=== PATIENT | female | born 1985 | race Caucasian/White ===

== ENCOUNTER 2021-11-23 09:52 | Emergency (ER) | payer SELFPAY ==
[2021-11-23 10:59] LABS: Urine Blood Negative (Negative); Urine Glucose Negative (Negative); Urine Protein Negative (Negative); Urine pH 6.5 (5.0-7.0)
--- NOTE | 2021-11-23 12:01 | RAD REPORT ---
EXAM DESCRIPTION: US - Transvaginal OB - 11/23/2021 11:37 am CLINICAL HISTORY: VAGINAL BLEEDING, COMPARISON: No comparisons FINDINGS: Single intrauterine gestation is identified within a normal shaped gestational sac. [place]- rump length measurement corresponds to a 10 week 2 day age. Normal heart tones are identifiable . No gross anatomic abnormality or acute finding within the gestational sac. Patient has a very small sub centimeter subchorionic hemorrhage not regarded as significant at this small size. Internal os a ppears closed. Right ovary is seen with normal blood flow in the ovarian stroma. Left ovary was obscured by bowel. N o adnexal abnormalities. IMPRESSION: Single 10 week 2 day IUP with normal cardiac activity. Very small sub centimeter subchorionic hemorrhage not likely significant. Cervical canal internal os appears closed.
[2021-11-23 12:07] LABS: Absolute Lymphocytes (CBC) 3.1 K/uL (0.7-4.9); Hematocrit 37.8 % (36.0-45.0); Lymphocytes % 23.7 % (15.3-44.8); MPV 8.8 fL (7.6-11.3); RBC Red Blood Cell Count 4.57 M/uL (3.86-4.86)
[2021-11-23 12:27] LABS: Potassium 3.6 mmol/L (3.5-5.1)
--- NOTE | 2021-11-23 12:52 | ER ---
Nurse's Notes [facility] Name: Nancy Kohli Age: 36 yrs Sex: Female : 1985 Arrival Date: 11/23/2021 Time: 09:55 Bed 12 Private MD: Diagnosis: Threatened Presentation: 11/23 10:43 Chief complaint: Patient states: Checking in to rehab and had a positive test ww but has been spotting for the past week. Coronavirus screen: Vaccine status: Patient reports being unvaccinated. Client denies travel out of the [place] in the last 14 days. Ebola Screen: Patient denies travel to an Ebola-affected area in the 21 days before illness onset. Initial Sepsis Screen: Does the patient meet any 2 criteria? No. Patient's initial sepsis screen is negative. Does the patient have a suspected source of infection? No. Patient's initial sepsis screen is negative. Risk Assessment: Do you want to hurt yourself or someone else? Patient reports no desire to harm self or others. Onset of symptoms is unknown. 10:43 Method Of Arrival: Ambulatory ww 10:43 Acuity: CUONG 3 ww Triage Assessment: 10:44 General: Appears in no apparent distress. Behavior is cooperative. Pain: Complains of ww pain in groin. Neuro: Level of Consciousness is awake, alert, obeys commands, Oriented to person, place, time, situation, Speech is normal. Cardiovascular: Patient's skin is warm and dry. Respiratory: Airway is patent Respiratory effort is even, unlabored, Respiratory pattern is regular, symmetrical. GI: Reports cramping. : Reports vaginal bleeding that is. 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 - Social history:: Smoking status: Patient reports the use of cigarette tobacco products. Screenin:09 Abuse screen: Denies threats or abuse. Denies injuries from another. Nutritional iw screening: No deficits noted. Tuberculosis screening: No symptoms or risk factors identified. Fall Risk None identified. Assessment: 12:09 Reassessment: Patient appears in no apparent distress at this time. Patient and/or iw family updated on plan of care and expected duration. Pain level reassessed. Patient is alert, oriented x 3, equal unlabored respirations, skin warm/dry/pink. Vital Signs: 10:43 BP 127 / 79; Pulse 99; Resp 18; Temp 98.6; Pulse Ox 99% ; Weight 68.04 kg; Height 5 ft. ww 3 in. (160.02 cm); Pain 0/10; 10:43 Body Mass Index 26.57 (68.04 kg, 160.02 cm) ww ED Course: 09:55 Patient arrived in ED. ds1 10:44 Triage completed. ww 10:44 Arm band placed on right wrist. ww 10:49 Bala Arreguin NP is PHCP. pm1 10:49 Kendrick Givens MD is Attending Physician. pm1 11:04 Urine --Ancillary (enter results) Sent. ww 11:39 US Transvaginal Ob In Process Unspecified. EDAZ 11:43 Cesilia Kearney, RN is Primary Nurse. iw 11:50 Initial lab(s) drawn, by vt, sent to lab. Inserted saline lock: 20 gauge in left kj1 antecubital area, using aseptic technique. Blood collected. 12:50 Wilmer Alejandro MD is Referral Physician. pm1 Administered Medications: No medications were administered Outcome: 12:51 Discharge ordered by . pm1 12:56 Patient left the ED. iw Signatures: Dispatcher [employer] EDAZ Rima [place] ds1 Cesilia Kearney RN RN Bala Arreguin NP SUPERINTENDENT DRILLING pm1 Natalia Wilhelm kj1 Iman Bullard RN RN
--- NOTE | 2021-11-23 12:52 | EDPHYS ---
Physician Documentation [facility] Name: Nancy Kohli Age: 36 yrs Sex: Female : 1985 Arrival Date: 11/23/2021 Time: 09:55 Bed 12 Private MD: Kendrick Villanueva HPI: 11/23 11:03 This 36 yrs old Female presents to ER via Ambulatory with complaints of Possible pm1 ,vaginal bleeding. 11:03 The patient presents with vaginal bleeding that is spotting. Onset: The pm1 symptoms/episode began/occurred 1 week(s) ago. Modifying factors: The symptoms are alleviated by nothing, the symptoms are aggravated by nothing. Associated signs and symptoms: The patient has no apparent associated signs or symptoms, Pertinent negatives: diarrhea, dyspareunia, dysuria, fever, nausea, vomiting, Abdominal pain. Severity of symptoms: in the emergency department the symptoms are unchanged. The patient is sexually active. The patient's method of control includes nothing. The patient has not experienced similar symptoms in the past. The patient has not recently seen a physician. Patient checking into rehabilitation and tested positive for urine test. Patient reports 1 month ago last possible menstrual cycle. 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 - Social history:: Smoking status: Patient reports the use of cigarette tobacco products. ROS: 11:03 Positive for vaginal bleeding, Negative for urinary symptoms, vaginal discharge. pm1 11:03 Constitutional: Negative for fever, chills, and weight loss, Cardiovascular: Negative for chest pain, palpitations, and edema, Respiratory: Negative for shortness of breath, cough, wheezing, and pleuritic chest pain, Abdomen/GI: Negative for abdominal pain, nausea, vomiting, diarrhea, and constipation, Back: Negative for injury and pain, MS/Extremity: Negative for injury and deformity, Skin: Negative for injury, rash, and discoloration, Neuro: Negative for headache, weakness, numbness, tingling, and seizure. 11:03 All other systems are negative. Exam: 11:03 Constitutional: This is a well developed, well nourished patient who is awake, alert, pm1 and in no acute distress. Head/Face: Normocephalic, atraumatic. 11:03 Back: No spinal tenderness. No costovertebral tenderness. Full range of motion. Skin: Warm, dry with normal turgor. Normal color with no rashes, no lesions, and no evidence of cellulitis. MS/ Extremity: Pulses equal, no cyanosis. Neurovascular intact. Full, normal range of motion. 11:03 Cardiovascular: Exam negative for acute changes, Rate: normal, Rhythm: regular, Pulses: no pulse deficits are appreciated. 11:03 Respiratory: Exam negative for acute changes, respiratory distress, shortness of breath. 11:03 Abdomen/GI: Inspection: abdomen appears normal, Palpation: abdomen is soft and non-tender, in all quadrants. 11:03 Neuro: Exam negative for acute changes, Orientation: is normal, Mentation: is normal, Motor: is normal, moves all fours. Vital Signs: 10:43 BP 127 / 79; Pulse 99; Resp 18; Temp 98.6; Pulse Ox 99% ; Weight 68.04 kg; Height 5 ft. ww 3 in. (160.02 cm); Pain 0/10; 10:43 Body Mass Index 26.57 (68.04 kg, 160.02 cm) ww MDM: 11:02 Patient medically screened. pm1 12:35 Data reviewed: vital signs. Data interpreted: Pulse oximetry: on room air is 99 %. pm1 Interpretation: normal. 12:50 Counseling: I had a detailed discussion with the patient and/or guardian regarding: the pm1 historical points, exam findings, and any diagnostic results supporting the discharge/admit diagnosis, lab results, radiology results, the need for outpatient follow up, an OB/Gyne specialist, to return to the emergency department if symptoms worsen or persist or if there are any questions or concerns that arise at home. 11/23 10:51 Order name: Abo/rh Typing; Complete Time: 12:29 pm1 11/23 10:51 Order name: Basic Metabolic Panel; Complete Time: 12:29 pm1 11/23 10:51 Order name: CBC with Diff; Complete Time: 12:29 pm1 11/23 10:51 Order name: Quantitative Hcg; Complete Time: 12:29 pm1 11/23 11:00 Order name: Urine Dipstick-Ancillary; Complete Time: 11:43 EDMS 11/23 11:00 Order name: Urine --Ancillary (enter results); Complete Time: 11:43 bd 11/23 10:51 Order name: IV Saline Lock; Complete Time: 12:09 pm1 11/23 10:51 Order name: Labs collected and sent; Complete Time: 12:09 pm1 11/23 10:51 Order name: NPO; Complete Time: 12:09 pm1 11/23 10:51 Order name: Urine Dipstick-Ancillary (obtain specimen); Complete Time: 11:04 pm1 11/23 10:51 Order name: Urine Test (obtain specimen); Complete Time: 11:04 pm1 11/23 10:51 Order name: US Transvaginal Ob; Complete Time: 12:03 pm1 Administered Medications: No medications were administered Disposition Summary: 11/23/21 12:51 Discharge Ordered Location: Home pm1 Problem: new pm1 Symptoms: have improved pm1 Condition: Stable pm1 Diagnosis - Threatened pm1 Followup: pm1 - With: Emergency Department - When: As needed - Reason: Worsening of condition Followup: pm1 - With: Wilmer Alejandro MD - When: 2 - 3 days - Reason: Recheck today's complaints, Continuance of care, Re-evaluation by your physician Discharge Instructions: - Discharge Summary Sheet pm1 - Threatened Miscarriage pm1 - Activity Restriction During pm1 Forms: - Medication Reconciliation Form pm1 - Thank You Letter pm1 - Antibiotic Education pm1 - Prescription Opioid Use pm1 Signatures: Dispatcher [employer] EDMS Bala Arreguin NP ELECTRONICS MANUFACTURER pm1 Iman Bullard, RN RN ww
[2021-11-23 13:06] VITALS: BP 127/79; TEMP 98.6; O2SAT 99
== END 2021-11-23 12:56 | disposition home or self-care (01) ==
LOC: ER 09:52
DX: O20.0 Threatened abortion (principal); O99.341 Other mental disorders complicating pregnancy, first trimester; O99.331 Smoking (tobacco) complicating pregnancy, first trimester; F17.210 Nicotine dependence, cigarettes, uncomplicated; Z3A.10 10 weeks gestation of pregnancy; Z88.2 Allergy status to sulfonamides
CPT/HCPCS: 36415; 76817; 80048; 81003; 81025; 84702; 85025; 86900; 86901; 99283

== ENCOUNTER 2021-12-13 20:34 | Emergency (ER) | payer OTHER ==
[2021-12-13 22:32] LABS: Urine Blood Negative (Negative); Urine Glucose Negative (Negative); Urine Protein Negative (Negative)
[2021-12-13 22:53] LABS: Absolute Lymphocytes (CBC) 2.9 K/uL (0.7-4.9); RBC Red Blood Cell Count 4.54 M/uL (3.86-4.86)
[2021-12-13 23:21] LABS: Potassium 3.9 mmol/L (3.5-5.1)
--- NOTE | 2021-12-14 00:33 | EDPHYS ---
Physician Documentation [facility] Name: Nancy Kohli Age: 36 yrs Sex: Female : 1985 Arrival Date: 12/13/2021 Time: 20:36 Bed 7 Private MD: ED Physician Shaun Somers HPI: 12/13 21:12 This 36 yrs old Female presents to ER via Ambulatory with complaints of Vaginal Pain, + aj3 preg > 12 weeks. 21:12 The patient presents with pelvic pain. Onset: The symptoms/episode began/occurred aj3 acutely, 1 day(s) ago. Associated signs and symptoms: Pertinent positives: constipation, urinary frequency, Pertinent negatives: diarrhea, dysuria, fever, hematuria, vaginal bleeding, vaginal discharge, vomiting. Patient is presenting with lower back pain and lower abdominal/pelvic pain that began today. Her last was 15 years ago so she was concerned and wanted to be evaluated. She does feel movement and she denies any vaginal discharge or bleeding.. 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 - Social history:: Smoking status: Patient reports the use of cigarette tobacco products, smokes one-half pack cigarettes per day, Patient/guardian denies using alcohol. ROS: 21:12 Constitutional: Negative for fever, chills, and weight loss, Cardiovascular: Negative aj3 for chest pain, palpitations, and edema, Respiratory: Negative for shortness of breath, cough, wheezing, and pleuritic chest pain, MS/Extremity: Negative for injury and deformity, Skin: Negative for injury, rash, and discoloration, Neuro: Negative for syncope, headache, weakness, numbness, tingling, and seizure. 21:12 Abdomen/GI: Positive for abdominal pain, constipation, abdominal cramps, Negative for nausea, vomiting, and diarrhea, black/tarry stool, rectal bleeding. 21:12 Back: Positive for pain at rest, of the lumbar area, left low back and right low back. 21:12 : Positive for pelvic pain, urinary frequency, Negative for hematuria, flank pain, difficulty urinating, vaginal bleeding, vaginal discharge, vaginal itching. Exam: 21:16 Constitutional: This is a well developed, well nourished patient who is awake, alert, aj3 and in no acute distress. Cardiovascular: Regular rate and rhythm with a normal S1 and S2. No gallops, murmurs, or rubs. Normal PMI, no JVD. No pulse deficits. Respiratory: Lungs have equal breath sounds bilaterally, clear to auscultation and percussion. No rales, rhonchi or wheezes noted. No increased work of breathing, no retractions or nasal flaring. 21:16 Abdomen/GI: Soft, non-tender, with normal bowel sounds. No distension or tympany. No guarding or rebound. No evidence of tenderness throughout. Skin: Warm, dry with normal turgor. Normal color with no rashes, no lesions, and no evidence of cellulitis. MS/ Extremity: Pulses equal, no cyanosis. Neurovascular intact. Full, normal range of motion. Neuro: Awake and alert, GCS 15, oriented to person, place, time, and situation. Cranial nerves II-XII grossly intact. Motor strength 5/5 in all extremities. Sensory grossly intact. Cerebellar exam normal. Normal gait. 21:16 Back: pain, that is very mild, diffuse lower back. Vital Signs: 20:50 BP 147 / 97; Pulse 107; Resp 18; Temp 98.1(TE); Pulse Ox 100% ; Weight 68.04 kg; Height ld1 5 ft. 3 in. (160.02 cm); Pain 0/10; 22:41 BP 118 / 79; Pulse 97; Resp 18; Pulse Ox 100% ; tw5 23:39 BP 118 / 75; Pulse 92; Resp 18 S; Pulse Ox 100% on R/A; as6 12/14 00:08 BP 122 / 81; Pulse 95; Resp 18; Pulse Ox 100% on R/A; tw5 00:35 BP 125 / 88; Pulse 88; Resp 18 S; Pulse Ox 99% on R/A; as6 12/13 20:50 Body Mass Index 26.57 (68.04 kg, 160.02 cm) ld1 MDM: 12/13 22:17 Patient medically screened. aj3 12/14 00:33 Data reviewed: vital signs, nurses notes, lab test result(s). Counseling: I had a aj3 detailed discussion with the patient and/or guardian regarding: the historical points, exam findings, and any diagnostic results supporting the discharge/admit diagnosis, lab results, radiology results, the need for outpatient follow up. ED course: ED work-up is reassuring. Ultrasound reported normal heart tones at rate 150. No acute events while in the ED. Discussed results, OB follow-up and ER return precautions which patient verbalized understanding. 12/13 21:19 Order name: Abo/rh Typing; Complete Time: 23:45 3 12/13 21:19 Order name: Basic Metabolic Panel; Complete Time: 23:45 3 12/13 21:19 Order name: CBC with Diff; Complete Time: 22:59 3 12/13 21:19 Order name: Quantitative Hcg; Complete Time: 23:45 3 12/13 22:32 Order name: Urine Dipstick-Ancillary; Complete Time: 22:38 EDMS 12/13 22:34 Order name: Urine --Ancillary (enter results); Complete Time: 23:45 [facility] 12/13 21:19 Order name: Labs collected and sent; Complete Time: 22:40 3 12/13 21:19 Order name: Urine Dipstick-Ancillary (obtain specimen); Complete Time: 22:31 3 12/13 22:39 Order name: US OB Limited aj3 Administered Medications: No medications were administered Disposition: 02:08 Co-signature as Attending Physician, Shaun Somers MD. [email or web address] Disposition Summary: 12/14/21 00:32 Discharge Ordered Location: Home aj3 Problem: new aj3 Symptoms: have improved aj3 Condition: Stable aj3 Diagnosis - related conditions, unspecified, second trimester aj3 - Lower abdominal pain, unspecified aj3 Followup: aj3 - With: Private Physician - When: 1 - 2 days - Reason: Re-evaluation by your physician Discharge Instructions: - Discharge Summary Sheet aj3 - Abdominal Pain During aj3 Forms: - Medication Reconciliation Form aj3 - Thank You Letter aj3 - Antibiotic Education aj3 - Prescription Opioid Use aj3 Signatures: Dispatcher [employer] Shaun Kraft MD MD 7 Nancy Nicolas RN RN ld1 Aida Wiggins NP OPERATIONAL TEST MECHANIC aj3
--- NOTE | 2021-12-14 00:33 | ER ---
Nurse's Notes [facility] Name: Nancy Kohli Age: 36 yrs Sex: Female : 1985 Arrival Date: 12/13/2021 Time: 20:36 Bed 7 Private MD: Diagnosis: related conditions, unspecified, second trimester;Lower abdominal pain, unspecified Presentation: 12/13 20:48 Chief complaint: Patient states: All day I have been having lower back pains and lower ld1 abdominal pain. Reports 17 weeks . Coronavirus screen: At this time, the client does not indicate any symptoms associated with coronavirus-19. Ebola Screen: No symptoms or risks identified at this time. 20:48 Method Of Arrival: Ambulatory ld1 20:50 Initial Sepsis Screen: Does the patient meet any 2 criteria? No. Patient's initial ld1 sepsis screen is negative. Does the patient have a suspected source of infection? No. Patient's initial sepsis screen is negative. Risk Assessment: Do you want to hurt yourself or someone else? Patient reports no desire to harm self or others. Onset of symptoms was December 13, 2021. 20:50 Acuity: CUONG 3 ld1 Triage Assessment: 20:50 General: Appears in no apparent distress. comfortable, Behavior is calm, cooperative, ld1 appropriate for age. Pain: Complains of pain in back and abdomen Pain does not radiate. Pain currently is 6 out of 10 on a pain scale. EENT: No signs and/or symptoms were reported regarding the EENT system. Neuro: Level of Consciousness is awake, alert, obeys commands, Oriented to person, place, time, situation. Cardiovascular: Capillary refill < 3 seconds Patient's skin is warm and dry. Rhythm is sinus rhythm. Respiratory: Airway is patent Respiratory effort is even, unlabored. GI: Abdomen is round non-distended, Reports lower abdominal pain. 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 - Social history:: Smoking status: Patient reports the use of cigarette tobacco products, smokes one-half pack cigarettes per day, Patient/guardian denies using alcohol. Screenin:41 Abuse screen: Denies threats or abuse. Denies injuries from another. Nutritional tw5 screening: No deficits noted. Tuberculosis screening: No symptoms or risk factors identified. Fall Risk None identified. Assessment: 22:41 General: Reports "I have been having lower back pain and my stomach has been hurting. I tw5 know that when you are you pee more, but I feel the need to go to the bathroom all the time and nothing comes out.". Pain: Complains of pain in low back area Pain currently is 3 out of 10 on a pain scale. Cardiovascular: No deficits noted. Respiratory: No deficits noted. GI: Abdomen is round. : Urine is cloudy, Reports urinary frequency. 12/14 00:08 Reassessment: Patient appears in no apparent distress at this time. No changes from tw5 previously documented assessment. Vital Signs: 12/13 20:50 BP 147 / 97; Pulse 107; Resp 18; Temp 98.1(TE); Pulse Ox 100% ; Weight 68.04 kg; Height ld1 5 ft. 3 in. (160.02 cm); Pain 0/10; 22:41 BP 118 / 79; Pulse 97; Resp 18; Pulse Ox 100% ; tw5 23:39 BP 118 / 75; Pulse 92; Resp 18 S; Pulse Ox 100% on R/A; as6 12/14 00:08 BP 122 / 81; Pulse 95; Resp 18; Pulse Ox 100% on R/A; tw5 00:35 BP 125 / 88; Pulse 88; Resp 18 S; Pulse Ox 99% on R/A; as6 12/13 20:50 Body Mass Index 26.57 (68.04 kg, 160.02 cm) ld1 ED Course: 12/13 20:36 Patient arrived in ED. bp1 20:50 Arm band placed on right wrist. ld1 20:51 Triage completed. ld1 21:01 Aida Wiggins NP is PHCP. aj3 21:01 Shaun Somers MD is Attending Physician. aj3 22:27 Bridget Bullard is Primary Nurse. tw5 22:40 Abo/rh Typing Sent. tw5 22:40 Basic Metabolic Panel Sent. tw5 22:41 Awaiting lab results. tw5 22:41 Patient has correct armband on for positive identification. Bed in low position. Call tw5 light in reach. Side rails up X 1. Pulse ox on. NIBP on. Door closed. Moved to private room. 22:41 Quantitative Hcg Sent. tw5 22:41 CBC with Diff Sent. tw5 22:41 Missed attempt(s): 20 gauge in left antecubital area. Bleeding controlled, band aid tw5 applied, catheter tip intact. 22:41 Initial lab(s) drawn, by me, sent to lab. Missed attempt(s): 22 gauge in left forearm. tw5 Bleeding controlled, band aid applied, catheter tip intact. 22:52 Quantitative Hcg Sent. tw5 22:52 Abo/rh Typing Sent. tw5 22:52 Basic Metabolic Panel Sent. tw5 22:52 CBC with Diff Sent. tw5 23:59 US OB Limited In Process Unspecified. EDMS 12/14 00:08 No provider procedures requiring assistance completed. tw5 00:36 Patient did not have IV access during this emergency room visit. as6 Administered Medications: No medications were administered Medication: 12/13 22:41 VIS not applicable for this client. tw5 Outcome: 06 00:32 Discharge ordered by . aj3 00:36 Discharged to home ambulatory, with significant other. as6 00:36 Condition: stable 00:36 Discharge instructions given to patient, Instructed on discharge instructions, follow up and referral plans. Demonstrated understanding of instructions, follow-up care. 00:36 Patient left the ED. as6 Signatures: Dispatcher [employer] EDMI Deloris Ko [facility] Nancy Nicolas, TO RN ld1 Bridget Bullard tw5 Ricky Olvera RN RN as6 Aida Wiggins, BUDGET CONSULTANT BUDGET CONSULTANT aj3
[2021-12-14 01:13] VITALS: TEMP 98.1
[2021-12-14 01:19] VITALS: BP 125/88; O2SAT 99
--- NOTE | 2021-12-14 12:40 | RAD REPORT ---
EXAM DESCRIPTION: US - OB Limited - 12/14/2021 1:02 am OB Limited CLINICAL HISTORY: 36 years Female, ABD CRAMPING, TECHNIQUE: Real-time transabdominal sonographic imaging of the pelvis was performed. COMPARISON: None. FINDINGS: Number of intrauterine gestational sacs identified: 1 Gestational sac (size/shape): Not measured. Ovoid and regular. [place]-rump length: 6.69 cm. heart rate: 157 Beats per minute. Yolk sac: Not visualized. Ultrasound age is 12 weeks 6 days , and ultrasound CARY is 06/21/2022. LMP age is 12 weeks 4 days , and LMP CARY is 06/23/2022. Subchorionic hemorrhage: None. Amnionic fluid: Qualitatively normal. Uterus: No focal myoma. Adnexa: Normal appearing right ovary with physiologic follicles, right ovary measures 2.9 x 1.5 x 1.7 cm. Nonvisualization of left ovary in part secondary to overlying bowel gas. No gross adnexal masses . Cul-de-sac: No free fluid. IMPRESSION: 1. Single live intrauterine with gestational age of 12 weeks 6 days with CARY of 06/21/2022. Electronically signed by: Wayne Burnette MD 12/14/2021 12:47 AM CDT Due to temporary technical issues with the PACS/Fluency reporting system, reports are being signed by the in house radiologists without review as a courtesy to insure prompt reporting. The interpreting radiologist is fully responsible for the content of the report.
== END 2021-12-14 00:36 | disposition home or self-care (01) ==
LOC: ER 20:34
DX: O26.891 Other specified pregnancy related conditions, first trimester (principal); O99.341 Other mental disorders complicating pregnancy, first trimester; F32.A Depression, unspecified; O99.331 Smoking (tobacco) complicating pregnancy, first trimester; F17.210 Nicotine dependence, cigarettes, uncomplicated; Z3A.12 12 weeks gestation of pregnancy; Z88.1 Allergy status to other antibiotic agents; Z88.2 Allergy status to sulfonamides
CPT/HCPCS: 36415; 76815; 80048; 81003; 81025; 84702; 85025; 86900; 86901; 99284

== ENCOUNTER 2023-10-28 14:34 | Emergency (ER) | payer OTHER ==
[2023-10-28 16:11] LABS: Absolute Basophils 0.1 K/uL (0-0.5); Absolute Eosinophils 0.4 K/uL (0-0.5); Absolute Lymphocytes (CBC) 2.7 K/uL (0.7-4.9); Absolute Monocytes 0.6 K/uL (0.1-1.3); Absolute Neutrophil 4.5 K/uL (1.8-8.0); Basophils % 0.7 % (0-1.3); Eosinophils % 5.1 % (0-4.4); Hematocrit 43.5 % (36.0-45.0); Hemoglobin 14.4 g/dL (12.0-15.0); Lymphocytes % 32.8 % (15.3-44.8); MCH 26.9 pg (27.0-35.0); MCV 81.5 fL (80-100); MPV 9.1 fL (7.6-11.3); Monocytes % 7.1 % (3.3-12.3); Neutrophils % 54.3 % (41.7-73.7); Nucleated Red Blood Cells % 0.1 % (0-0); Platelets 280 thou/uL (152-406); RBC Red Blood Cell Count 5.34 M/uL (3.86-4.86); Red Cell Distribution Width 14.7 % (12.1-15.2)
[2023-10-28 16:13] LABS: Anion Gap 8.8 mEq/L (5.0-15.0)
[2023-10-28 16:26] LABS: Potassium 3.8 mEq/L (3.5-5.1)
--- NOTE | 2023-10-28 18:01 | RAD REPORT ---
EXAM DESCRIPTION: US - Transvaginal Study Probe - 10/28/2023 4:51 pm CLINICAL HISTORY: Abd pain;Vaginal bleeding COMPARISON: No comparisons TECHNIQUE: Sonographic grayscale and color flow images of the pelvis were obtained. FINDINGS: The uterus is normal in size. The uterus measures 7.2 cm in length. Diffuse heterogeneity of the myometrium, with bulky appearance at the fundus. The endometrial stripe measures 5 mm, normal. Both ovaries are normal in size, and overall morphology. The right over 3.3 x 1.3 x 1.6 cm. The left ovary measures 2.6 x 1.2 x 1.2 cm. Small hypoechoic lesion in the left ovary measuring 1.2 cm, with p eripheral hyperechogenicity, may represent a recently ruptured cyst or hemorrhagic follicle. No adnex al masses. Normal Doppler blood flow was demonstrated to both ovaries. Trace free fluid in the cul-de-sac. IMPRESSION: Bulky uterine fundus and diffuse heterogeneity of the myometrium. Findings may relate to poorly defined fibroids versus adenomyosis. Left ovarian 1.2 cm hypoechoic lesion, may represent a recently ruptured cyst or hemorrhagic follicle . Trace free fluid in the cul-de-sac, likely physiologic.
[2023-10-28] MEDS ORDERED: KETOROLAC 30 MG/ML INJ ONE (18:18)
[2023-10-28 19:31] LABS: Urine Bacteria None Seen /HPF (<20); Urine Culture Reflex Order REFLEXED; Urine Mucus 2+ /HPF (None Seen); Urine RBC >50 /HPF (None Seen)
[2023-10-28 19:32] LABS: Specific Gravity > 1.030 (1.005-1.030); Urine Bilirubin NEGATIVE (Negative); Urine Blood 3+ (OVER) (Negative); Urine Clarity Extremely Turbid (Clear); Urine Color Light-Orange (Yellow); Urine Glucose NEGATIVE (Negative); Urine Ketones NEGATIVE (Negative); Urine Microscopic Reflex YN NO UMIC; Urine Nitrite NEGATIVE (Negative); Urine Protein 1+ (Negative); Urine Urobilinogen Normal (Normal); Urine pH 5.5 (5.0-7.0)
[2023-10-28 19:33] LABS: Specific Gravity > 1.030 (1.005-1.030)
--- NOTE | 2023-10-28 19:39 | ER ---
Nurse's Notes [facility] Name: Nancy Kohli Age: 38 yrs Sex: Female : 1985 Arrival Date: 10/28/2023 Time: 14:34 Bed 5 Private MD: Diagnosis: Other ovarian cysts;Leiomyoma of uterus, unspecified;Abnormal uterine and vaginal bleeding, unspecified Presentation: 10/27 15:23 Chief complaint: Patient states: "[place] a pop" in lower abdomen last night while having ph sexual intercourse, reports burning pain after popping sensation, states, " I looked down there this morning and it looked like something was pardeep sticking out down there, like it was swollen.". Coronavirus screen: Vaccine status: Patient reports being unvaccinated. Ebola Screen: No symptoms or risks identified at this time. Initial Sepsis Screen: Does the patient meet any 2 criteria? No. Patient's initial sepsis screen is negative. Does the patient have a suspected source of infection? No. Patient's initial sepsis screen is negative. Risk Assessment: Do you want to hurt yourself or someone else? Patient reports no desire to harm self or others. Onset of symptoms was October 28, 2023. 15:23 Method Of Arrival: Ambulatory ph 15:23 Acuity: CUONG 3 ph Triage Assessment: 15:25 General: Appears in no apparent distress. Behavior is cooperative, anxious. Pain: ph Complains of pain in pelvis. : Reports burning with urination, vaginal bleeding that is spotty. RN CAMP: 15:26 3, LMP N/A - Irregular menses, Not ph Historical: - Allergies: 15:25 Bactrim; ph 15:25 Sulfa (Sulfonamide Antibiotics); ph - Home Meds: 15:25 Seroquel Oral [Active]; ph - PMHx: 15:25 depressive disorder; ph - PSHx: 15:27 tubal ligation; section; ph - Immunization history:: Adult Immunizations unknown. - Infectious Disease History:: Denies. - Social history:: Smoking status: unknown. Screenin:26 [facility] ED Fall Risk Assessment (Adult) History of falling in the last 3 months, ph including since admission No falls in past 3 months (0 pts) Confusion or Disorientation No (0 pts) Intoxicated or Sedated No (0 pts) Impaired Gait No (0 pts) Mobility Assist Device Used No (0 pt) Altered Elimination No (0 pt) Score/Fall Risk Level 0 - 2 = Low Risk Oriented to surroundings, Maintained a safe environment, Hourly rounding (assess needs \\T\\ fall precautionary measures) done. Abuse screen: Denies threats or abuse. Denies injuries from another. Nutritional screening: No deficits noted. Tuberculosis screening: No symptoms or risk factors identified. Assessment: 15:30 General: SEE TRIAGE NOTE. bp 17:00 Reassessment: Patient appears in no apparent distress at this time. Patient is alert, bp oriented x 3, equal unlabored respirations, skin warm/dry/pink. : Reports vaginal bleeding that is light flow. 18:35 Pain: Complains of pain in pelvis. Neuro: Level of Consciousness is awake, alert, obeys ph commands, Oriented to person, place, time, situation. Cardiovascular: Capillary refill is > 3 seconds in bilateral fingers Patient's skin is warm and dry. Respiratory: Airway is patent Respiratory effort is even, unlabored. 19:54 Reassessment: Patient appears in no apparent distress at this time. Patient and/or bm8 family updated on plan of care and expected duration. Pain level reassessed. Patient is alert, oriented x 3, equal unlabored respirations, skin warm/dry/pink. Patient states feeling better. Patient states symptoms have improved. Vital Signs: 15:23 BP 141 / 100; Pulse 90; Resp 18; Temp 98.2; Pulse Ox 100% on R/A; Weight 68.04 kg; ph Height 5 ft. 3 in. ; 17:05 BP 123 / 87; Pulse 81; Resp 16; Pulse Ox 100% ; bp 18:36 BP 118 / 78; Pulse 78; Resp 18; Pulse Ox 98% on R/A; ph 19:54 BP 119 / 96; Pulse 92; Resp 17; Temp 98.2; Pulse Ox 99% ; Pain 4/10; bm8 15:23 Body Mass Index 26.57 (68.04 kg, 160.02 cm) ph 19:54 Pain Scale: Adult bm8 Piotr Coma Score: 19:54 Eye Response: spontaneous(4). Motor Response: obeys commands(6). Verbal Response: bm8 oriented(5). Total: 15. ED Course: 14:39 Patient arrived in ED. ra3 14:44 Mulu Rodriguez FNP is PHCP. jh7 14:44 Misael Vail MD is Attending Physician. jh7 15:13 Mika Viveros, ROGELIO is Primary Nurse. bp 15:25 Triage completed. ph 15:26 Arm band placed on Patient placed in an exam room, on a stretcher. ph 15:26 Patient has correct armband on for positive identification. Placed in gown. Bed in low ph position. Call light in reach. Side rails up X 1. Pulse ox on. NIBP on. Door closed. Noise minimized. Warm blanket given. 15:39 No provider procedures requiring assistance completed. Initial lab(s) drawn, by ri, ph sent to lab. Inserted saline lock: 22 gauge in right antecubital area, using aseptic technique. Blood collected. 15:40 Basic Metabolic Panel Sent. ph 15:40 CBC with Diff Sent. ph 16:52 Transvaginal Study Probe In Process Unspecified. EDWA 18:01 PHCP role handed off by Mulu Rodriguez FNP kb 18:01 Jocelyn Wilhelm FNP-C is PHCP. kb 19:08 Report received from rogelio nice. bm8 19:13 Test, Urine Sent. tm6 19:13 Urinalysis w/ reflexes Sent. tm6 19:17 Awaiting lab results. bm8 19:54 Provided Education on: POST ER CARE and need for follow up with obgyn. bm8 19:54 IV discontinued, intact, bleeding controlled, No redness/swelling at site. Pressure bm8 dressing applied. Administered Medications: 18:35 Drug: Ketorolac IVP 15 mg IVP once Route: IVP; Site: right antecubital; ph 19:55 Follow up: Response: No adverse reaction bm8 Medication: 15:40 VIS not applicable for this client. ph Outcome: 19:39 Discharge ordered by . kb 19:54 Discharged to home ambulatory, bm8 19:54 Condition: stable 19:54 Discharge instructions given to patient, Instructed on discharge instructions, follow up and referral plans. medication usage, safety practices, Demonstrated understanding of instructions, follow-up care, medications, 19:56 Patient left the ED. bm8 Signatures: Dispatcher [employer] EDWA Jocelyn Wilhelm FNP-C FNP-Verona Thomas, RN RN ph Mika Viveros, RN RN bp Mulu Rodriguez, SHIPYARD PAINTER APPRENTICE SHIPYARD PAINTER APPRENTICE 7 Earnest Garner RN RN 6 Rita Bill [facility] Doyle Quintero RN RN bm8 Corrections: (The following items were deleted from the chart) 18:36 17:00 : Reports vaginal bleeding that is bp ph
--- NOTE | 2023-10-28 19:39 | EDPHYS ---
Physician Documentation [facility] Name: Nancy Kohli Age: 38 yrs Sex: Female : 1985 Arrival Date: 10/28/2023 Time: 14:34 Bed 5 Private MD: ED Physician Misael Vail HPI: 10/27 15:23 This 38 yrs old Female presents to ER via Ambulatory with complaints of Vaginal jh7 Bleeding, Vaginal Pain - burning sensation. 15:23 The patient presents with pelvic pain, with associated dyspareunia, vaginal bleeding jh7 that is spotting. Onset: The symptoms/episode began/occurred last night. 38-year-old female with no significant past medical history presents to the ER for vaginal pain. She reports that she was having sexual intercourse last night and that she suddenly felt a pop in her lower abdomen. Reports vaginal burning, dysuria, and feeling like something was protruding from her vagina afterwards. Denies fever, nausea, vomiting, or changes in bowels.. COGNOS ARCHITECT: 15:26 3, LMP N/A - Irregular menses, Not ph Historical: - Allergies: 15:25 Bactrim; ph 15:25 Sulfa (Sulfonamide Antibiotics); ph - Home Meds: 15:25 Seroquel Oral [Active]; ph - PMHx: 15:25 depressive disorder; ph - PSHx: 15:27 tubal ligation; section; ph - Immunization history:: Adult Immunizations unknown. - Infectious Disease History:: Denies. - Social history:: Smoking status: unknown. ROS: 15:23 Constitutional: Negative for fever, chills, and weight loss, Eyes: Negative for injury, jh7 pain, redness, and discharge, Neck: Negative for injury, pain, and swelling, Cardiovascular: Negative for chest pain, palpitations, and edema, Respiratory: Negative for shortness of breath, cough, wheezing, and pleuritic chest pain, Abdomen/GI: Negative for abdominal pain, nausea, vomiting, diarrhea, and constipation, MS/Extremity: Negative for injury and deformity, Skin: Negative for injury, rash, and discoloration, Neuro: Negative for headache, weakness, numbness, tingling, and seizure, 15:23 : Positive for pelvic pain, burning with urination, vaginal bleeding, Negative for flank pain, 15:23 All other systems are negative, Exam: 15:23 Constitutional: This is a well developed, well nourished patient who is awake, alert, jh7 and in no acute distress. Head/Face: Normocephalic, atraumatic. Neck: Trachea midline, no thyromegaly or masses palpated, and no cervical lymphadenopathy. Supple, full range of motion without nuchal rigidity, or vertebral point tenderness. No Meningismus. Cardiovascular: Regular rate and rhythm with a normal S1 and S2. No gallops, murmurs, or rubs. Normal PMI, no JVD. No pulse deficits. Respiratory: Lungs have equal breath sounds bilaterally, clear to auscultation and percussion. No rales, rhonchi or wheezes noted. No increased work of breathing, no retractions or nasal flaring. Abdomen/GI: Soft, non-tender, with normal bowel sounds. No distension or tympany. No guarding or rebound. No evidence of tenderness throughout. Back: No spinal tenderness. No costovertebral tenderness. Full range of motion. Skin: Warm, dry with normal turgor. Normal color with no rashes, no lesions, and no evidence of cellulitis. MS/ Extremity: Pulses equal, no cyanosis. Neurovascular intact. Full, normal range of motion. Neuro: Awake and alert, GCS 15, oriented to person, place, time, and situation. Motor strength 5/5 in all extremities. Sensory grossly intact. Normal gait. Vital Signs: 15:23 BP 141 / 100; Pulse 90; Resp 18; Temp 98.2; Pulse Ox 100% on R/A; Weight 68.04 kg; ph Height 5 ft. 3 in. ; 17:05 BP 123 / 87; Pulse 81; Resp 16; Pulse Ox 100% ; bp 18:36 BP 118 / 78; Pulse 78; Resp 18; Pulse Ox 98% on R/A; ph 19:54 BP 119 / 96; Pulse 92; Resp 17; Temp 98.2; Pulse Ox 99% ; Pain 4/10; bm8 15:23 Body Mass Index 26.57 (68.04 kg, 160.02 cm) ph 19:54 Pain Scale: Adult bm8 Schlater Coma Score: 19:54 Eye Response: spontaneous(4). Motor Response: obeys commands(6). Verbal Response: bm8 oriented(5). Total: 15. MDM: 14:44 Patient medically screened. [facility] 19:39 Differential diagnosis: uti, fibroids, ovarian cyst. Data reviewed: vital signs, nurses kb notes. Counseling: I had a detailed discussion with the patient and/or guardian regarding the historical points, exam findings, and any diagnostic results supporting the discharge/admit diagnosis, lab results, radiology results, the need for outpatient follow up, an OB/Gyne specialist, to return to the emergency department if symptoms worsen or persist or if there are any questions or concerns that arise at home. 10/27 15:19 Order name: Basic Metabolic Panel; Complete Time: 16:58 [facility] 10/27 15:19 Order name: CBC with Diff; Complete Time: 16:58 [facility] 10/27 15:19 Order name: Test, Urine; Complete Time: 19:36 [facility] 10/27 15:19 Order name: Urinalysis w/ reflexes; Complete Time: 19:36 [facility] 10/27 19:35 Order name: Urine Culture [facility] 10/27 16:17 Order name: Transvaginal Study Probe; Complete Time: 18:02 [facility] 10/27 15:19 Order name: IV Saline Lock; Complete Time: 15:40 [facility] 10/27 15:19 Order name: Labs collected and sent; Complete Time: 15:40 [facility] 10/27 15:19 Order name: NPO; Complete Time: 15:40 [facility] 10/27 15:19 Order name: Pelvic Exam Setup; Complete Time: 15:40 [facility] Administered Medications: 18:35 Drug: Ketorolac IVP 15 mg IVP once Route: IVP; Site: right antecubital; ph 19:55 Follow up: Response: No adverse reaction bm8 Disposition: 10/28 08:50 Co-signature as Attending Physician, Misael Vail MD I reviewed the patient's care rt provided by the Advanced Practice Provider and agree with the diagnosis and treatment plan. Disposition Summary: 10/28/23 19:39 Discharge Ordered Notes: Location: Home kb Condition: Stable kb Diagnosis - Other ovarian cysts kb - Leiomyoma of uterus, unspecified kb - Abnormal uterine and vaginal bleeding, unspecified kb Followup: kb - With: Emergency Department - When: As needed - Reason: Worsening of condition Followup: kb - With: Private Physician - When: 2 - 3 days - Reason: Recheck today's complaints, Continuance of care, Re-evaluation by your physician Discharge Instructions: - Discharge Summary Sheet kb - Uterine Fibroids kb - Ovarian Cyst, [id number] kb - Abnormal Uterine Bleeding, [id number] kb Forms: - Medication Reconciliation Form kb - Thank You Letter kb - Antibiotic Education kb - Prescription Opioid Use kb - Patient Portal Instructions kb - Leadership Thank You Letter kb Signatures: Dispatcher [employer] EDMS Jocelyn Wilhelm, NED-C FORESTRY AND WILDLIFE MANAGER-Verona Thomas, RN RN Mulu Rodriguez FNP FORESTRY AND WILDLIFE MANAGER jh7 Misael Vail MD MD rt Doyle Quintero RN bm8 Corrections: (The following items were deleted from the chart) 10/27 15:20 15:20 Pelvis Complete+US.RAD.BRZ ordered. EDIL EDMS
[2023-10-28 20:37] VITALS: BP 119/96; TEMP 98.2; O2SAT 99
== END 2023-10-28 19:56 | disposition home or self-care (01) ==
LOC: ER 14:34
DX: D25.9 Leiomyoma of uterus, unspecified (principal); N83.299 Other ovarian cyst, unspecified side; Z88.1 Allergy status to other antibiotic agents; Z88.2 Allergy status to sulfonamides
CPT/HCPCS: 36415; 76830; 80048; 81003; 81025; 85025; 87077; 87086; 87088; 87186; 96374; 99284